=== PATIENT | male | born 1945 | race Hispanic/Latino ===

== ENCOUNTER 2016-11-22 06:29 | Day surgery (SDC) | payer MEDICARE ==
[2016-11-22 07:53] LABS: INR 0.99 (0.87-1.13)
[2016-11-22 07:58] LABS: Anion Gap 17 mmol/L; BUN/Creatinine Ratio 18.88; Blood Urea Nitrogen 17 mg/dL (9-20); Carbon Dioxide 24 mmol/L (22-30); Chloride 105.5 mmol/L (98-107); Glucose 117 mg/dL (75-100); Potassium 4.2 mmol/L (3.6-5.0); Sodium 142 mmol/L (137-145)
[2016-11-22] MEDS ORDERED: NACL 0.9% 500 ML 500 ML IV SCH (08:00)
[2016-11-22 08:18] LABS: Basophils % (Auto) 0.9 % (0.0-1.8); Eosinophils % (Auto) 5.8 % (0.0-4.3); Mean Corpuscular HGB Conc 33 % (32-34); Mean Corpuscular Hemoglobin 30 pg (28-32); Mean Corpuscular Volume 89 fl (84-94); Platelet Count 236 K/mm3 (140-440); Red Cell Distribution Width 12.7 % (13.2-15.2); White Blood Count 7.3 K/mm3 (4.5-11.0)
[2016-11-22] MEDS ORDERED: ECOTRIN PO ONE (08:30)
[2016-11-22] MEDS ORDERED: NACL 0.9% 100 ML ONE (08:37)
[2016-11-22] MEDS ORDERED: WATER FOR INJ (PF) 10 ML ONE (08:38)
[2016-11-22] MEDS ORDERED: XYLOCAINE 2% INFILTRATI ONE (08:38)
[2016-11-22] MEDS ORDERED: ANGIOMAX IV ONE (08:38)
[2016-11-22] MEDS ORDERED: NACL 0.9% 500 ML 1,000 ML ONE (08:39)
[2016-11-22] MEDS: SUBLIMAZE ONE ×2 (09:04→09:10)
[2016-11-22] MEDS: VERSED ONE ×2 (09:05→09:10)
--- NOTE | 2016-11-22 09:53 | Short Stay Summary ---
Short Stay Documentation Date of service: 11/22/16 - History H&P: obtained from office - Allergies and Medications Current Medications: Allergies heparin Allergy (Verified 11/22/16 07:08) BLOOD CLOTS Home Medications Medication Instructions Recorded Confirmed Last Taken Type Aspirin EC [Aspirin Enteric Coated 81 mg PO DAILY 07/12/14 11/22/16 11/21/16 History TAB] Buspirone HCl 10 mg PO QID 07/12/14 11/22/16 11/22/16 History Fenofibrate 160 mg PO DAILY 07/12/14 11/22/16 11/21/16 History Gabapentin 300 mg PO BID 07/12/14 11/22/16 11/21/16 History Isosorbide Mononitrate 30 mg PO DAILY 07/12/14 11/22/16 11/21/16 History Metoprolol Tartrate 50 mg PO BID 07/12/14 11/22/16 11/21/16 History Omeprazole 20 mg PO DAILY 07/12/14 11/22/16 11/21/16 History Escitalopram [Lexapro] 5 mg PO DAILY 11/22/16 11/22/16 11/21/16 History Active Medications Sodium Chloride (Nacl 0.9% 500 Ml) 500 mls @ 50 mls/hr IV DIRECT EDITA Stop: 11/22/16 17:59 Last Admin: 11/22/16 07:49 Dose: 50 mls/hr - Brief post op/procedure progress note Date of procedure: 11/22/16 Pre-op diagnosis: sob Post-op diagnosis: same Procedure: see report Anesthesia: local Estimated blood loss: none Pathology: none - Disposition Condition at discharge: Good Disposition: DISCHARGED TO HOME OR SELFCARE - Discharge Diagnoses (1) Abnormal stress test Status: Acute (2) CAD (coronary artery disease) of bypass graft Status: Chronic Qualifiers: [place] vs. transplanted heart: [place] heart Associated angina: without angina Qualified Code(s): I25.810 - Atherosclerosis of coronary artery bypass graft(s) without angina pectoris (3) Hyperlipidemia Status: Chronic Qualifiers: Hyperlipidemia type: mixed hyperlipidemia Qualified Code(s): E78.2 - Mixed hyperlipidemia (4) Hypertension Status: Chronic Qualifiers: Hypertension type: essential hypertension Qualified Code(s): I10 - Essential (primary) hypertension (5) Tobacco abuse Status: Chronic Short Stay Discharge Plan Activity: advance as tolerated Diet: regular, low fat, low cholesterol Wound: keep clean and dry Follow up with: ZULMA BALDERAS MD [Primary Care Provider] - 7 Days
--- NOTE | 2016-11-22 12:11 | Cardiac Catherization Report ---
Left heart catheterization with bypass grafts and internal mammary injection being done on 11/22/2016. ORDERING PHYSICIAN: ____. CLINICAL INFORMATION: This is a 71-year-old gentleman with past medical history of hypertension, hyperlipidemia, mild aortic stenosis. The patient several years ago had a 2-vessel bypass for aneurysmal RCA lesion, SVG to PDA and SVG to RV marginal. The patient in 2013 had more anginal symptoms, had left main disease and was sent for redo bypass, and a SALAZAR to LAD and SVG to OM. 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 He is no longer on it. The patient is here for shortness of breath with moderate ischemia in inferior region on a stress test, so left heart cath performed via the left femoral artery, sterile technique, local anesthesia, 5-[place] radial sheath inserted. Left system engaged with a JL4 catheter, calcification of the coronary arteries. FINDINGS: 1. Left main is a medium caliber vessel, distal has 99% lesion. LAD proximal 100% and circumflex proximal 100%. 2. RCA is 100% proximally. 3. SVG to PDA engaged with an AR MOD catheter, it is a large caliber graft, free of disease at the ostium, body, and anastomosis site feeds into a medium caliber PDA, PLV and retrograde fill back into the distal RCA. 4. SVG to RV branch was engaged with an AR MOD catheter, it is a small caliber graft, free of disease, feeds into a small RV branch. 5. SVG to OM was engaged with JR4 catheter, large caliber graft, free of disease at the ostium, body, and anastomosis site feeding into a large OM1 with retrograde fill in to the circumflex. 6. SALAZAR was engaged with an IM catheterization, a large caliber graft, free of disease at the ostium, body and anastomosis, feeding to the mid LAD with retrograde fill into the diagonal 1 and the rest of the LAD, which a medium caliber vessel. 7. LV gram done in NARINDER and MCLEAN view shows normal LV function, LVEDP at 19 mmHg, LV is 154/19. Aortic is 135/62. The patient has mild aortic stenosis, 20 mm [id number] gradient. 8. All catheters were taken over a guidewire, 5-[place] groin sheath was discontinued, manual pressure held. No hematoma. No bleeding. SUMMARY: 1. Patent SALAZAR to LAD, patent SVG to OM, patent SVG to PDA, patent SVG to RV marginal. 2. Left main distal 99% with proximal LAD 100%, and proximal circumflex 100%, proximal RCA 100%. 3. The patient has mild aortic stenosis with a [id number] gradient 20 mmHg and the patient tolerated procedure well. Discussed this in detail with the patient. JOB# [id number] BRITNEY/KADI
[2016-11-22 13:18] VITALS: BP 124/83
== END 2016-11-22 14:09 | disposition home or self-care (01) ==
LOC: OPU 06:29
PROVIDERS: ATTEND Internal Medicine
DX: I25.10 Atherosclerotic heart disease of native coronary artery without angina pectoris (principal); I35.0 Nonrheumatic aortic (valve) stenosis; E78.5 Hyperlipidemia, unspecified; I10 Essential (primary) hypertension; Z86.718 Personal history of other venous thrombosis and embolism; Z95.1 Presence of aortocoronary bypass graft; Z95.5 Presence of coronary angioplasty implant and graft; Z79.899 Other long term (current) drug therapy; Z87.891 Personal history of nicotine dependence
CPT/HCPCS: 36415; 80048; 85025; 85610; 85730; 93005; 93010; 93459; C1769; J0583; J2250; J3010; J7040; Q9967